=== PATIENT | female | born 1990 | race Caucasian/White ===

== ENCOUNTER → 2017-10-06 | Outpatient (CLI) | payer MEDICAID | LOC: CIMAGING 10:18 | PROVIDERS: ATTEND Family Medicine | DX: R10.11 Right upper quadrant pain (principal) | CPT/HCPCS: 76705-PO ==

== ENCOUNTER 2017-10-15 17:18 | Emergency (ER) | payer MEDICAID ==
[2017-10-15 17:33] VITALS: BP 123/80; PULSE 87; RESP 16; TEMP 98.6; O2SAT 96
--- NOTE | 2017-10-15 17:44 | EDPHY ---
H & P Stated Complaint: PT. states 12mm tb skin test per [facility]. denies s/s's, but needs xray Time Seen by Provider: 10/15/17 17:33 HPI/ROS: CHIEF COMPLAINT: Positive PPD HISTORY OF PRESENT ILLNESS: Patient is a 27-year-old female who comes here for chest x-ray because she had a positive PPD test read today. 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 She has not had a fever chills cough that cetera. She has no known exposure. She was told she has to get an x-ray before she can return to school tomorrow. REVIEW OF SYSTEMS: Constitutional: denies: chills, fever, recent illness, recent injury EENTM: denies: blurred vision, double vision, nose congestion Respiratory: denies: cough, shortness of breath Cardiac: denies: chest pain, irregular heart rate, lightheadedness, palpitations Gastrointestinal/Abdominal: denies: abdominal pain, diarrhea, nausea, vomiting, blood streaked stools Genitourinary: denies: dysuria, frequency, hematuria, pain Musculoskeletal: denies: joint pain, muscle pain Skin: denies: lesions, rash, jaundice, bruising Neurological: denies: headache, numbness, paresthesia, tingling, dizziness, weakness Hematologic/Lymphatic: denies: blood clots, easy bleeding, easy bruising Immunologic/allergic: denies: HIV/AIDS, transplant EXAM: GENERAL: Well-appearing, well-nourished and in no acute distress. HEAD: Atraumatic, normocephalic. EYES: Pupils equal round and reactive to light, extraocular movements intact, sclera anicteric, conjunctiva are normal. ENT: TMs normal, nares patent, oropharynx clear without exudates. Moist mucous membranes. NECK: Normal range of motion, supple without lymphadenopathy or JVD. LUNGS: Breath sounds clear to auscultation bilaterally and equal. No wheezes rales or rhonchi. HEART: Regular rate and rhythm without murmurs, rubs or gallops. ABDOMEN: Soft, nontender, normoactive bowel sounds. No guarding, no rebound. No masses appreciated. BACK: No CVA tenderness, no spinal tenderness, step-offs or deformities EXTREMITIES: Normal range of motion, no pitting or edema. No clubbing or cyanosis. NEUROLOGICAL: Cranial nerves II through XII grossly intact. Normal speech, normal gait. 5/5 strength, normal movement in all extremities, normal sensation PSYCH: Normal mood, normal affect. SKIN: Small area of induration left forearm Source: Patient Exam Limitations: No limitations - Personal History LMP (Females 10-55): 15-21 Days Ago Current Tetanus Diphtheria and Acellular Pertussis (TDAP): Yes Tetanus Vaccine Date: 2016 - Medical/Surgical History Hx Asthma: No Hx Chronic Respiratory Disease: No Hx Diabetes: No Hx Cardiac Disease: No Hx Renal Disease: No Hx Cirrhosis: No Hx Alcoholism: No Hx HIV/AIDS: No Hx Splenectomy or Spleen Trauma: No Other PMH: seizures as a child - Family History Significant Family History: No pertinent family hx - Social History Smoking Status: Never smoked Alcohol Use: Sober Drug Use: None Constitutional: Initial Vital Signs Temperature (C) 37.0 C 10/15/17 17:29 Heart Rate 87 10/15/17 17:29 Respiratory Rate 16 10/15/17 17:29 Blood Pressure 123/80 H 10/15/17 17:29 O2 Sat (%) 96 10/15/17 17:29 O2 Delivery Mode Room Air Allergies/Adverse Reactions: oxycodone HCl [From Percocet] Allergy (Verified 10/15/17 17:28) Penicillins Allergy (Verified 10/15/17 17:28) Home Medications: Medication Instructions Recorded NK [No Known Home Meds] 10/15/17 Medical Decision Making - Diagnostics Imaging Results: Imaging Impressions Chest X-Ray 10/15/17 17:39 Impression: No radiographic evidence of mycobacterial infection. ED Course/Re-evaluation: Patient appears to have a positive PPD test although it is very faint. We will perform an x-ray and refer her to either infectious disease or [facility] for follow-up and further testing. She has not received a BCG vaccine. 6:15 p.m. The patient remains asymptomatic. Her x-rays reassuring. She will follow up with her school [facility]. I will also give her a referral to Infectious Disease. Differential Diagnosis: Partial list of the Differential diagnosis considered include but were not limited to; tuberculosis, false positive and although unlikely based on the history and physical exam, I also considered pneumonia. Departure - Departure Disposition: Home, Routine, Self-Care Clinical Impression: Positive PPD Condition: Fair Instructions: Tuberculosis (DC) Referrals: Arun Villarreal MD [Primary Care Provider] - As per Instructions Dominique Dillon MD [Medical Doctor] - As per Instructions
== END 2017-10-15 18:20 | disposition home or self-care (01) ==
LOC: CED 17:18
DX: R76.11 Nonspecific reaction to tuberculin skin test without active tuberculosis (principal)
CPT/HCPCS: 71046-PO

== ENCOUNTER → 2018-04-09 | Outpatient (CLI) | payer MEDICAID | LOC: CIMAGING 10:13 | PROVIDERS: ATTEND Internal Medicine | DX: Z12.4 Encounter for screening for malignant neoplasm of cervix (principal); N83.201 Unspecified ovarian cyst, right side | CPT/HCPCS: 76856-PO ==